=== PATIENT | female | born 1985 | race Two or more races ===

== ENCOUNTER 2019-03-11 09:37 | Outpatient (CLI) | payer OTHER | END 2019-03-11 09:49 | disposition home or self-care (01) | LOC: MAMO-SONO 09:37 | DX: Z12.31 Encounter for screening mammogram for malignant neoplasm of breast (principal); Z87.898 Personal history of other specified conditions; N63.10 Unspecified lump in the right breast, unspecified quadrant; N63.20 Unspecified lump in the left breast, unspecified quadrant; N64.59 Other signs and symptoms in breast; R10.2 Pelvic and perineal pain; N64.89 Other specified disorders of breast ==

== ENCOUNTER 2019-03-14 08:59 | Outpatient (CLI) | payer OTHER | END 2019-03-14 09:14 | disposition home or self-care (01) | LOC: LAB 08:59 | DX: E03.8 Other specified hypothyroidism (principal); E78.00 Pure hypercholesterolemia, unspecified; Z00.00 Encounter for general adult medical examination without abnormal findings; N39.0 Urinary tract infection, site not specified; Z11.4 Encounter for screening for human immunodeficiency virus [HIV]; E55.9 Vitamin D deficiency, unspecified; Z21 Asymptomatic human immunodeficiency virus [HIV] infection status; R79.89 Other specified abnormal findings of blood chemistry; I10 Essential (primary) hypertension ==

== ENCOUNTER 2019-03-31 11:22 | Outpatient (CLI) | payer OTHER | END 2019-03-31 11:33 | disposition home or self-care (01) | LOC: SONOGRAMA 11:22 | DX: D05.12 Intraductal carcinoma in situ of left breast (principal); N60.11 Diffuse cystic mastopathy of right breast; N60.12 Diffuse cystic mastopathy of left breast ==

== ENCOUNTER 2019-04-09 12:10 | Inpatient (IN) | payer OTHER ==
[~2019-04-09] VITALS: Ht 157.5 cm; Wt 63.5 kg
[2019-04-16] MEDS ORDERED: CODE1TAB37 PO (06:29)
[2019-04-16] MEDS ORDERED: NEURONTIN600 MG PO (06:29)
== END 2019-04-16 08:00 | disposition home or self-care (01) | DRG 743 ==
LOC: O/R 04-14 05:58 → OB/GYN 04-14 05:58 → SURG 04-14 07:15 → OB/GYN 04-14 11:45
PROVIDERS: ADMIT Obstetrics & Gynecology
PROC: 0UT70ZZ Resection of Bilateral Fallopian Tubes, Open Approach (ICD-10-PCS; 2019-04-14)
PROC: 0UT20ZZ Resection of Bilateral Ovaries, Open Approach (ICD-10-PCS; 2019-04-14)
PROC: 0UT90ZZ Resection of Uterus, Open Approach (ICD-10-PCS; principal; 2019-04-14 08:30)
DX: D25.2 Subserosal leiomyoma of uterus (principal); N93.8 Other specified abnormal uterine and vaginal bleeding; N83.292 Other ovarian cyst, left side; N83.291 Other ovarian cyst, right side; N72 Inflammatory disease of cervix uteri

== ENCOUNTER 2019-05-14 08:15 | Inpatient (IN) | payer OTHER ==
[~2019-05-14] VITALS: Ht 157.5 cm; Wt 63.5 kg
[~2019-05-14 08:15] MED LIST: CODE1TAB37 PO; NEURONTIN600 MG PO
[2019-05-16] MEDS ORDERED: GABAPENTIN600 MG PO (08:58)
== END 2019-05-17 15:56 | disposition home or self-care (01) | DRG 581 ==
LOC: SURH 05-16 06:00 → O/R 05-16 06:24 → SURH 05-16 08:15 → SURG 05-16 18:41
PROVIDERS: Plastic Surgery; ADMIT Surgery
PROC: 0HBX0ZX Excision of Left Nipple, Open Approach, Diagnostic (ICD-10-PCS; 2019-05-16)
PROC: 0HHV0NZ Insertion of Tissue Expander into Bilateral Breast, Open Approach (ICD-10-PCS; 2019-05-16)
PROC: 07B60ZX Excision of Left Axillary Lymphatic, Open Approach, Diagnostic (ICD-10-PCS; principal; 2019-05-16 13:00)
PROC: 0HTV0ZZ Resection of Bilateral Breast, Open Approach (ICD-10-PCS; 2019-05-16 13:00)
DX: C50.412 Malignant neoplasm of upper-outer quadrant of left female breast (principal); Z17.0 Estrogen receptor positive status [ER+]; N62 Hypertrophy of breast; N64.89 Other specified disorders of breast

== ENCOUNTER 2019-07-11 05:58 | Day surgery (SDC) | payer OTHER ==
[~2019-07-11 05:58] MED LIST changes: +GABAPENTIN600 MG PO
== END 2019-07-11 14:30 | disposition home or self-care (01) ==
LOC: CIR.AMB 05:58 → U 05:58 → CIR.AMB 14:30
PROVIDERS: Plastic Surgery
PROC: 0HPT0JZ Removal of Synthetic Substitute from Right Breast, Open Approach (ICD-10-PCS; 2019-07-11)
PROC: 0HRV0JZ Replacement of Bilateral Breast with Synthetic Substitute, Open Approach (ICD-10-PCS; 2019-07-11)
PROC: 0H0V0JZ Alteration of Bilateral Breast with Synthetic Substitute, Open Approach (ICD-10-PCS; 2019-07-11)
PROC: 0HPU0JZ Removal of Synthetic Substitute from Left Breast, Open Approach (ICD-10-PCS; principal; 2019-07-11 07:00)
DX: C50.412 Malignant neoplasm of upper-outer quadrant of left female breast (principal); Z90.13 Acquired absence of bilateral breasts and nipples; Z41.1 Encounter for cosmetic surgery
CPT/HCPCS: 19330; 19342; 19366; C1789

== ENCOUNTER 2020-03-22 13:50 | Outpatient (CLI) | payer OTHER | END 2020-03-22 14:49 | disposition home or self-care (01) | LOC: SONOGRAMA 13:50 | PROVIDERS: ATTEND Surgery | DX: N60.11 Diffuse cystic mastopathy of right breast (principal); N60.12 Diffuse cystic mastopathy of left breast; C50.412 Malignant neoplasm of upper-outer quadrant of left female breast ==

== ENCOUNTER 2021-01-21 10:23 | Outpatient (CLI) | payer OTHER | END 2021-01-21 10:32 | disposition home or self-care (01) | LOC: MAMO-SONO 10:23 | PROVIDERS: ATTEND Internal Medicine Hematology & Oncology | DX: N60.11 Diffuse cystic mastopathy of right breast (principal); N60.12 Diffuse cystic mastopathy of left breast; Z12.31 Encounter for screening mammogram for malignant neoplasm of breast; C50.412 Malignant neoplasm of upper-outer quadrant of left female breast; Z85.3 Personal history of malignant neoplasm of breast ==

== ENCOUNTER 2021-06-28 06:57 | Day surgery (SDC) | payer OTHER ==
[~2021-06-28 06:57] MED LIST changes: +MILLIPRED5 MG PO; +TAMOXIFEN CITRA20 MG PO; +ZYRTEC10 M3 PO
== END 2021-06-28 17:35 | disposition home or self-care (01) ==
LOC: CIR.AMB 06:57
PROVIDERS: ATTEND Orthopaedic Surgery Hand Surgery
DX: G56.02 Carpal tunnel syndrome, left upper limb (principal); Z88.0 Allergy status to penicillin; Z88.6 Allergy status to analgesic agent

== ENCOUNTER 2021-09-29 14:20 | Emergency (ER) | payer OTHER ==
[~2021-09-29] VITALS: Ht 165.1 cm; Wt 65.8 kg
[2021-09-29] MEDS ORDERED: ZITHROMAX500 MG PO (20:01)
[2021-09-29] MEDS ORDERED: TUSSIN DM LIQU118 ML PO (20:05)
== END 2021-09-29 20:47 | disposition home or self-care (01) ==
LOC: ER 14:20
DX: J06.9 Acute upper respiratory infection, unspecified (principal); Z88.6 Allergy status to analgesic agent; Z88.8 Allergy status to other drugs, medicaments and biological substances; Z91.018 Allergy to other foods

== ENCOUNTER 2022-12-27 11:54 | Outpatient (CLI) | payer OTHER ==
[~2022-12-27 11:54] MED LIST changes: +TUSSIN DM LIQU118 ML PO; +ZITHROMAX500 MG PO
== END 2022-12-27 12:09 | disposition home or self-care (01) ==
LOC: MAMO-SONO 11:54
PROVIDERS: ATTEND Internal Medicine Hematology & Oncology
DX: C50.412 Malignant neoplasm of upper-outer quadrant of left female breast (principal); Z85.3 Personal history of malignant neoplasm of breast; Z12.31 Encounter for screening mammogram for malignant neoplasm of breast

== ENCOUNTER 2023-01-17 12:56 | Outpatient (CLI) | payer OTHER | END 2023-01-17 13:08 | disposition home or self-care (01) | LOC: SONOGRAMA 12:56 | PROVIDERS: ATTEND Internal Medicine Hematology & Oncology | DX: E04.1 Nontoxic single thyroid nodule (principal); E03.8 Other specified hypothyroidism; E06.1 Subacute thyroiditis ==

== ENCOUNTER 2023-02-22 07:11 | Outpatient (CLI) | payer OTHER | END 2023-02-22 07:13 | disposition home or self-care (01) | LOC: NUCLEAR 07:11 | PROVIDERS: ATTEND Internal Medicine Rheumatology | DX: M25.50 Pain in unspecified joint (principal) ==

== ENCOUNTER 2023-05-28 11:59 | Outpatient (CLI) | payer OTHER | END 2023-05-28 13:26 | disposition home or self-care (01) | LOC: SONOGRAMA 11:59 | PROVIDERS: ATTEND Pathology Anatomic Pathology & Clinical Pathology | DX: D34 Benign neoplasm of thyroid gland (principal); E07.89 Other specified disorders of thyroid; E04.2 Nontoxic multinodular goiter ==

== ENCOUNTER 2023-10-24 07:12 | Outpatient (CLI) | payer OTHER | END 2023-10-24 07:30 | disposition home or self-care (01) | LOC: MRI 07:12 | PROVIDERS: ATTEND Internal Medicine | DX: D13.7 Benign neoplasm of endocrine pancreas (principal); E16.2 Hypoglycemia, unspecified | CPT/HCPCS: 74183 ==

== ENCOUNTER 2023-11-27 07:28 | Outpatient (CLI) | payer OTHER | END 2023-11-27 07:39 | disposition home or self-care (01) | LOC: MRI 07:28 | PROVIDERS: ATTEND Internal Medicine | DX: R51.9 Headache, unspecified (principal) | CPT/HCPCS: 70551 ==

== ENCOUNTER 2024-11-18 17:10 | Emergency (ER) | payer OTHER ==
[~2024-11-18] VITALS: Ht 160 cm; Wt 61.2 kg
[2024-11-18] MEDS ORDERED: 0.9 % SODIUM CHLORIDE 1,000 ML IV STA (19:16)
[2024-11-18] MEDS ORDERED: MORPHINE SULFATE 4 MG/ML CARTRIDGE IV STA (19:17)
[2024-11-18 19:34] LABS: BASO % 0.2 % (0.1-1.2); EOS # 0.02 (0.04-0.54); EOS % 0.1 % (0.7-7.0); LYMPH # 2.53 (1.18-3.74); LYMPH % 17.2 % (19.3-53.1); MEAN PLATELET VOLUME 9.30 fl (9.4-12.4); MONO # 1.31 (0.24-0.82); MONO % 8.9 % (4.7-12.5); NEUT # 10.74 (1.56-6.13); NEUT % 72.8 % (34.0-71.1); RED CELL DISTRIBUTION WIDTH 11.9 % (11.6-14.4)
[2024-11-18 19:54] LABS: INR 1.12
[2024-11-18 20:00] LABS: ALT/SGPT 14.0 U/L (12-78); AST/SGOT 51.0 U/L (15-37); BILIRUBIN TOTAL 0.44 mg/dL (0.3-1.2); BUN CREA RATIO 13.0 (7.0-25.0); CREATININE SERUM 0.77 mg/dL (0.55-1.02); GFR 83.03; GLOBULINA 5.5 G/DL (2.4-3.5); GLUCOSE FASTING 104.0 mg/dL (65-100); OSMOLALITY SERUM 269.0 MOSM/KG (275-295)
[2024-11-18] MEDS ORDERED: ORPHENADRINE CITRATE 30 MG/ML AMPUL ONE (21:25)
[2024-11-18] MEDS ORDERED: ORPHENADRINE CITRATE 30 MG/ML AMPUL IV ONE (21:30)
[2024-11-18 21:35] LABS: URINE APPEARANCE Clear; URINE BILIRRUBIN Negative (NEGATIVE); URINE BLOOD Negative; URINE COLOR Yellow; URINE GLUCOSE Negative (NEGATIVE); URINE KETONE Negative (NEGATIVE); URINE LEUKOCYTE Negative; URINE NITRATE Negative; URINE PROTEIN Negative (NEGATIVE); URINE UROBILINOGEN 0.2 E.U./dl
[2024-11-18 21:38] LABS: URINE BACTERIA 20.4 uL (0.0-1933); URINE EPITHELIAL CELLS 1.8 uL (0.0-38.8); URINE RBC 3.3 uL (0.0-20.8); URINE WBC 13.0 uL (0.0-23.2)
[2024-11-18 21:45] LABS: URINE CAST 0.14 uL (0.0-1.40)
[2024-11-19] MEDS ORDERED: TRAMADOL HCL 50 MG TABLET PO STA (00:33)
[2024-11-19] MEDS ORDERED: GABAPENTIN 600 MG TABLET PO STA (00:34)
[2024-11-19] MEDS ORDERED: MORPHINE SULFATE 4 MG/ML VIAL IV STA ×2 (02:00→06:47)
[2024-11-19 07:30] VITALS: BP 108/72; O2SAT 98
== END 2024-11-19 09:35 ==
LOC: ER 17:10
PROVIDERS: General Practice
DX: C79.51 Secondary malignant neoplasm of bone (principal); M54.9 Dorsalgia, unspecified; Z88.0 Allergy status to penicillin; Z88.6 Allergy status to analgesic agent; Z88.2 Allergy status to sulfonamides; Z85.3 Personal history of malignant neoplasm of breast; Z85.42 Personal history of malignant neoplasm of other parts of uterus
CPT/HCPCS: 36415; 74177; Q9965

== ENCOUNTER → 2025-01-01 11:22 | Outpatient (CLI) | payer OTHER ==
[2025-01-01 13:46] LABS: BUN CREA RATIO 16.0 (7.0-25.0); CREATININE SERUM 0.58 mg/dL (0.55-1.02); GFR 115.14; GLUCOSE FASTING 74.0 mg/dL (65-100); OSMOLALITY SERUM 275.0 MOSM/KG (275-295)
== END | disposition home or self-care (01) ==
LOC: LAB 11:22
DX: C79.51 Secondary malignant neoplasm of bone (principal); C50.812 Malignant neoplasm of overlapping sites of left female breast